=== PATIENT | male | born 1975 | race Caucasian/White ===

== ENCOUNTER 2018-07-29 10:02 | Inpatient (IN) ==
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
[2018-07-29 10:36] LABS: Baso % (Auto) 0.5 % (0.0-2.0); Eos # (Auto) 0.1 th/mm3 (0.0-0.4); Eos % (Auto) 1.5 % (0.0-4.0); Hematocrit 40.7 % (39.0-51.0); Hemoglobin 13.5 gm/dL (13.0-17.0); Lymph # (Auto) 0.9 th/mm3 (1.0-4.8); Lymph % (Auto) 21.3 % (9.0-44.0); Mean Corpuscular HGB Conc 33.1 % (32.0-36.0); Mean Corpuscular Hemoglobin 30.2 pg (27.0-34.0); Mean Corpuscular Volume 91.1 fL (80.0-100.0); Mean Platelet Volume 8.8 fL (7.0-11.0); Mono # (Auto) 0.4 th/mm3 (0.0-0.9); Mono % (Auto) 8.7 % (0.0-8.0); Platelet Count 183 th/mm3 (150-450); Red Blood Count 4.47 mil/mm3 (4.50-5.90); Red Cell Distribution Width 13.4 % (11.6-17.2); White Blood Count 4.4 th/mm3 (4.0-11.0)
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
[2018-07-29] MEDS ORDERED: HYDROmorphone PF Inj 1 MG/ML Ampul IV.PUSH PRN (13:12)
[2018-07-29] MEDS ORDERED: Ketorolac Inj 30 MG/ML (IVP) Vial IV.PUSH PRN (13:12)
[2018-07-29] MEDS ORDERED: Docusate Sodium 100 MG Capsule PO SCH (13:15)
[2018-07-29] MEDS ORDERED: Pantoprazole Inj 40 MG Vial IV.PUSH SCH (14:00)
[2018-07-29] MEDS ORDERED: Methocarbamol Inj 1,000 MG in Dextrose 5% in Water Inj 240 ML IV.SIG SCH ×2 (15:00)
[2018-07-29] MEDS: Sod Chloride 0.9% Inj 1,000 ML IV.CONT SCH ×2 (15:06→22:40)
[2018-07-29] MEDS ORDERED: Morphine Inj 4 MG/ML Vial IV.PUSH PRN (15:28)
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
[2018-07-29 17:42] LABS: Activated Partial Thrombo Time 23.6 sec (24.3-30.1); Prothrombin Time 10.6 sec (9.8-11.6)
[2018-07-29] MEDS: Senna/Docusate Sodium 8.6/50 MG Tablet PO SCH (20:02)
[2018-07-29] MEDS ORDERED: Lidocaine 5% Patch T-DERMAL SCH ×3 (20:30→21:00)
[2018-07-30] MEDS ORDERED: Chlorhexidine Gluconate 2% 1 Pack (2 Cloths) TOPICAL SCH (04:00)
[2018-07-30] MEDS ORDERED: Chlorhexidine Gluconate 2% 1 Pack (2 Cloths) TOPICAL PRN (04:00)
[2018-07-30 05:34] VITALS: PULSE 62
[2018-07-30 06:02] LABS: Baso % (Auto) 0.2 % (0.0-2.0); Eos # (Auto) 0.1 th/mm3 (0.0-0.4); Eos % (Auto) 1.7 % (0.0-4.0); Hematocrit 39.2 % (39.0-51.0); Hemoglobin 13.5 gm/dL (13.0-17.0); Lymph # (Auto) 1.3 th/mm3 (1.0-4.8); Lymph % (Auto) 19.3 % (9.0-44.0); Mean Corpuscular HGB Conc 34.4 % (32.0-36.0); Mean Corpuscular Hemoglobin 30.8 pg (27.0-34.0); Mean Corpuscular Volume 89.5 fL (80.0-100.0); Mono # (Auto) 0.8 th/mm3 (0.0-0.9); Mono % (Auto) 11.5 % (0.0-8.0); Neut # (Auto) 4.6 th/mm3 (1.8-7.7); Neut % (Auto) 67.3 % (16.0-70.0); Platelet Count 193 th/mm3 (150-450); Red Blood Count 4.38 mil/mm3 (4.50-5.90); Red Cell Distribution Width 13.2 % (11.6-17.2); White Blood Count 6.9 th/mm3 (4.0-11.0)
[2018-07-30 06:33] LABS: Calcium 7.9 mg/dL (8.5-10.1); Carbon Dioxide 26.1 meq/L (21.0-32.0); Potassium 4.1 meq/L (3.5-5.1)
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
[2018-07-30 08:36] VITALS: O2SAT 94
[2018-07-30] MEDS: Senna/Docusate Sodium 8.6/50 MG Tablet PO SCH (08:41)
[2018-07-30 09:04] VITALS: BP 106/64; RESP 16; TEMP 98.3
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
== END 2018-07-30 11:48 | disposition home or self-care (01) ==
LOC: NEDA 10:02 → NEPE 10:02 → N06 14:38
PROVIDERS: ADMIT Surgery; ATTEND Surgery